=== PATIENT | female | born 1990 | race Caucasian/White ===

== ENCOUNTER 2017-10-28 10:15 | Emergency (ER) | payer OTHER ==
[2017-10-28 10:24] VITALS: BP 128/69; PULSE 76; TEMP 98.8; BMI 36.8
--- NOTE | 2017-10-28 10:55 | PDOC ---
History of Present Illness - General Chief Complaint: Injury Stated Complaint: LEFT ARM PAIN Time Seen by Provider: 10/28/17 10:27 History Source: Patient (Patient walked in complaining of pain in the left forearm after accidentally hit by a closing door at work last nite) Exam Limitations: No Limitations - History of Present Illness Timing/Duration: 24 hours, constant Severity: moderate Modifying Factors: improves with: rest Associated Symptoms: reports: denies symptoms Aspirin Received prior to arrival: Yes: no aspirin today Past History - Travel Traveled outside of the country in the last 30 days: No Close contact w/someone who was outside of country & ill: No - Past Medical History Allergies/Adverse Reactions: Allergies Allergy/AdvReac Type Severity Reaction Status Date / Time No Known Allergies Allergy Unverified 10/28/17 10:17 Home Medications: Ambulatory Orders Ibuprofen [Motrin -] 400 mg PO TID #21 tablet 10/28/17 Naproxen Sodium [Aleve] 220 mg PO ONCE 10/28/17 COPD: No - Immunization History Immunization Up to Date: Yes - Suicide/Smoking/Psychosocial Hx Smoking History: Never smoked Hx Alcohol Use: No Drug/Substance Use Hx: No Substance Use Type: None Review of Systems - Review of Systems Able to Perform ROS?: Yes Is the patient limited Japanese proficient: Yes Constitutional: No: Symptoms Reported, See HPI, Chills, Diaphoresis, Fever, Loss of Appetite, Malaise, Night Sweats, Weakness, Weight Stable, Unintentional Wgt. Loss, Unexplained wgt Loss, Other HEENTM: No: Symptoms Reported, See HPI, Eye Pain, Blurred Vision, Tearing, Recent change in vision, Double Vision, Cataracts, Ear Pain, Ocular Prothesis, Ear Discharge, Nose Pain, Nose Congestion, Tinnitus, Nose Bleeding, Hearing Loss , Throat Pain, Throat Swelling, Mouth Pain, Dental Problems, Difficulty Swallowing, Mouth Swelling, Other Respiratory: No: Symptoms reported, See HPI, Cough, Orthopnea, Shortness of Breath, SOB with Exertion, SOB at Rest, Stridor, Wheezing, Productive cough, Hemoptysis, Other Cardiac (ROS): No: Symptoms Reported, See HPI, Chest Pain, Edema, Irregular Heart Rate, Lightheadedness, Palpitations, Syncope, Chest Tightness, Other ABD/GI: No: Symptoms Reported, See HPI, Abdominal Distended, Abd. Pain w/ defecation, Blood Streaked Bowels, Constipated, Diarrhea, Difficulty Swallowing , Nausea, Poor Appetite, Poor Fluid Intake, Rectal Bleeding, Vomiting, Indigestion, Abdominal cramping, Tarry Stools, Other Musculoskeletal: Yes: Symptoms Reported, See HPI Integumentary: No: Symptoms Reported, See HPI, Bruising, Change in Color, Change in Hair/Nails, Dryness, Erythema, Flushing, Lesions, Lumps, Pallor, Pruritus, Rash, Sweating, Other Neurological: No: Symptoms reported, See HPI, Headache, Numbness, Paresthesia, Pre-Existing Deficit, Seizure, Tingling, Tremors, Weakness, Unsteady Gait, Ataxia, Dizziness, Other Psychiatric: No: Anxiety, Depression, Frequent Crying, Stressors, Sleep Pattern Change, Emotional Problems, Mood Swings, Change in Appetite, Other All Other Systems: Reviewed and Negative *Physical Exam - Vital Signs Last Vital Signs Temp Pulse Resp BP Pulse Ox 98.8 F 76 15 128/69 97 10/28/17 10:16 10/28/17 10:16 10/28/17 10:16 10/28/17 10:16 10/28/17 10:16 - Physical Exam General Appearance: Yes: Nourished, Appropriately Dressed, Moderate Distress HEENT: positive: DREW Neck: positive: Supple Cardiovascular: positive: Regular Rhythm Lymphatic: negative: Adenopathy Musculoskeletal: positive: Decreased Range of Motion Extremity: positive: Normal Capillary Refill, Tender (tenderness at active and passive motion left forearm) Integumentary: positive: Normal Color, Dry, Warm Neurologic: positive: grid operator II-XII NML intact, Fully Oriented, Alert, Normal Mood/ Affect ED Treatment Course - ADDITIONAL ORDERS Additional order review: Laboratory Results 10/28/17 10:25 Urine HCG, Qual Negative *DC/Admit/Observation/Transfer Diagnosis at time of Disposition: Forearm contusion Qualifiers: Encounter type: initial encounter Laterality: left Qualified Code(s): S50.12XA - Contusion of left forearm, initial encounter - Discharge Dispostion Disposition: HOME Condition at time of disposition: Good Admit: No - Referrals Referrals: James Loco MD [Staff Physician] - - Patient Instructions Printed Discharge Instructions: How to Use a Sling, DI for Forearm Muscle Strain - Post Discharge Activity Forms/Work/School Notes: Back to Work
== END 2017-10-28 12:24 | disposition home or self-care (01) ==
LOC: FER 10:15
DX: S50.12XA Contusion of left forearm, initial encounter (principal); W20.8XXA Other cause of strike by thrown, projected or falling object, initial encounter; Y93.89 Activity, other specified; Y92.9 Unspecified place or not applicable
CPT/HCPCS: 73090-TC-LT; 84703; 99282-25